=== PATIENT | male | born 1950 | race African-American/Black ===

== ENCOUNTER 2020-02-13 17:57 | Inpatient (IN) | payer MEDICARE, MEDICAID ==
[~2020-02-13] VITALS: Ht 172.7 cm; Wt 90.3 kg
[2020-02-13] MEDS ORDERED: ONDANSETRON HCL 4MG/2ML INJ IV STA (18:11)
[2020-02-13] MEDS ORDERED: SODIUM CHLORIDE 0.9% 500 ML IV ONE ×2 (18:15→23:00)
[2020-02-13 19:20] LABS: HEMATOCRIT. 35.8 % (42.0-52.0); HEMOGLOBIN. 13.2 g/dL (14.0-18.0); MEAN CORPUSCULAR HEMOGLOBIN 34.5 pg (28.0-32.0); MEAN CORPUSCULAR VOLUME 93.5 fL (80.0-94.0); MEAN PLATELET VOLUME 8.7 fl (7.4-10.4); PLATELET 279 x1000/uL (130-400); RED BLOOD CELL COUNT 3.83 mill/uL (4.7-6.1)
[2020-02-13 19:25] LABS: CHLORIDE 74 mEq/L (98-107)
[2020-02-13 19:30] LABS: ETHANOL BLOOD < 10 mg/dL
[2020-02-13] MEDS ORDERED: ASPIRIN 325MG TABLET PO ONE (20:15)
[2020-02-13 20:52] LABS: PLATELET ESTIMATE NORMAL
[2020-02-13 23:02] LABS: CLARITY URINE CLEAR (CLEAR); COLOR URINE YELLOW (YELLOW); KETONES URINE TRACE (NEGATIVE); LEUKOCYTE ESTERASE URINE NEGATIVE (NEGATIVE); NITRITE URINE NEGATIVE (NEGATIVE); OCCULT BLOOD URINE 2+ (NEGATIVE); PROTEIN URINE 2+ (NEGATIVE); SPECIFIC GRAVITY URINE 1.022 (1.005-1.030)
[2020-02-13 23:15] LABS: *AMPHETAMINES SCREEN URINE NEGATIVE (NEGATIVE); *BARBITURATES SCREEN URINE NEGATIVE (NEGATIVE); *BENZODIAZEPINES SCREEN URINE NEGATIVE (NEGATIVE); *COCAINE SCREEN URINE NEGATIVE (NEGATIVE); METHADONE URINE SCREEN NEGATIVE (NEGATIVE); OPIATES URINE SCREEN NEGATIVE (NEGATIVE); PHENCYCLIDINE URINE SCREEN NEGATIVE (NEGATIVE)
[2020-02-13 23:16] LABS: CANNABINOID URINE SCREEN NEGATIVE (NEGATIVE)
[2020-02-13] MEDS ORDERED: LORAZEPAM 2MG/ML CPJ IV NR (23:45)
[2020-02-13] MEDS ORDERED: MORPHINE SULFATE 2 MG/ML CPJ (NOT FOR IM USE) IV NR (23:45)
[2020-02-14] VITALS (18 sets, daily range): BP systolic 126–237; BP diastolic 46–143
[2020-02-14] MEDS ORDERED: CLONIDINE 0.1MG TABLET PO PRN (01:15)
[2020-02-14] MEDS ORDERED: SODIUM CHLORIDE 0.9% 1,000 ML IV SCH (01:15)
[2020-02-14] MEDS: HYDRALAZINE 20MG/ML VIAL IV SCH ×2 (01:59→06:00)
[2020-02-14] MEDS: KCL 20MEQ/100ML PREMIX 100 ML IV SCH ×2 (03:41→06:42)
[2020-02-14 07:33] LABS: CHLORIDE 77 mEq/L (98-107)
[2020-02-14] MEDS: MORPHINE SULFATE 2 MG/ML CPJ (NOT FOR IM USE) IV PRN ×2 (08:02→16:53)
[2020-02-14] MEDS: AMLODIPINE 10MG TABLET PO SCH (08:03)
[2020-02-14 08:04] LABS: HEMATOCRIT. 34.3 % (42.0-52.0); HEMOGLOBIN. 12.4 g/dL (14.0-18.0); MEAN CORPUSCULAR HEMOGLOBIN 34.2 pg (28.0-32.0); MEAN CORPUSCULAR VOLUME 94.3 fL (80.0-94.0); MEAN PLATELET VOLUME 8.6 fl (7.4-10.4); PLATELET 285 x1000/uL (130-400); RED BLOOD CELL COUNT 3.64 mill/uL (4.7-6.1)
[2020-02-14] MEDS: METOPROLOL TARTRATE 50MG TABLET PO SCH ×2 (08:08→20:52)
[2020-02-14] MEDS ORDERED: BENAZEPRIL 10MG TABLET PO SCH (09:00)
[2020-02-14] MEDS: IPRATROPIUM/ALBUTEROL 0.5-3(2.5)MG/3ML NEB HHN SCH ×2 (09:20→13:00)
[2020-02-14] MEDS: LORAZEPAM 2MG/ML CPJ IV PRN ×2 (12:20→20:51)
[2020-02-14] MEDS ORDERED: SODIUM CHLORIDE 3% 150 ML IV NR (12:30)
[2020-02-14 13:40] LABS: PLATELET ESTIMATE NORMAL
[2020-02-14] MEDS: HYDRALAZINE HCL 100MG TABLET PO SCH ×2 (13:41→20:51)
[2020-02-14 20:15] LABS: HEPATITIS B SURFACE ANTIGEN NEGATIVE
[2020-02-14 20:44] LABS: HEPATITIS A AB IGM NEGATIVE (NEGATIVE)
[2020-02-15] VITALS (12 sets, daily range): BP systolic 114–163; BP diastolic 56–74
[2020-02-15] MEDS: HYDRALAZINE HCL 100MG TABLET PO SCH ×3 (06:15→21:35)
[2020-02-15 06:45] LABS: CHLORIDE 81 mEq/L (98-107)
[2020-02-15 07:44] LABS: HEMATOCRIT. 35.9 % (42.0-52.0); HEMOGLOBIN. 12.8 g/dL (14.0-18.0); MEAN CORPUSCULAR HEMOGLOBIN 34.5 pg (28.0-32.0); MEAN CORPUSCULAR VOLUME 96.9 fL (80.0-94.0); MEAN PLATELET VOLUME 9.2 fl (7.4-10.4); PLATELET 257 x1000/uL (130-400); RED BLOOD CELL COUNT 3.71 mill/uL (4.7-6.1); RED CELL DISTRIBUTION WIDTH 16.5 % (11.6-14.6)
[2020-02-15] MEDS ORDERED: SODIUM CHLORIDE 3% 500ML IV SOLN IV ONE (08:15)
[2020-02-15] MEDS ORDERED: SODIUM CHLORIDE 3% 200 ML IV SCH (09:00)
[2020-02-15] MEDS: BENAZEPRIL 10MG TABLET PO SCH (09:15)
[2020-02-15] MEDS: METOPROLOL TARTRATE 100MG TABLET PO SCH ×2 (09:16→21:35)
[2020-02-15] MEDS: LORAZEPAM 2MG/ML CPJ IV PRN (09:16)
[2020-02-15] MEDS: AMLODIPINE 10MG TABLET PO SCH (09:16)
[2020-02-15 10:37] LABS: PLATELET ESTIMATE NORMAL
[2020-02-15] MEDS ORDERED: SODIUM CHLORIDE 3% 150 ML IV NR (23:00)
[2020-02-16] VITALS (12 sets, daily range): BP systolic 131–195; BP diastolic 30–89
[2020-02-16] MEDS: DEXT 5%/0.9% NACL 1,000 ML IV SCH (02:58)
[2020-02-16] MEDS: HYDRALAZINE HCL 100MG TABLET PO SCH ×2 (06:34→14:24)
[2020-02-16 06:52] LABS: HEMATOCRIT. 37.4 % (42.0-52.0); HEMOGLOBIN. 13.1 g/dL (14.0-18.0); MEAN CORPUSCULAR HEMOGLOBIN 33.9 pg (28.0-32.0); MEAN CORPUSCULAR VOLUME 96.4 fL (80.0-94.0); MEAN PLATELET VOLUME 8.5 fl (7.4-10.4); PLATELET 273 x1000/uL (130-400); RED BLOOD CELL COUNT 3.87 mill/uL (4.7-6.1); RED CELL DISTRIBUTION WIDTH 16.1 % (11.6-14.6)
[2020-02-16 07:02] LABS: CHLORIDE 86 mEq/L (98-107)
[2020-02-16] MEDS: AMLODIPINE 10MG TABLET PO SCH (10:41)
[2020-02-16] MEDS: BENAZEPRIL 10MG TABLET PO SCH (10:41)
[2020-02-16] MEDS: METOPROLOL TARTRATE 100MG TABLET PO SCH (10:42)
[2020-02-16 12:22] LABS: PLATELET ESTIMATE NORMAL
[2020-02-16] MEDS ORDERED: CLONIDINE 0.1MG TABLET PO SCH (14:00)
[2020-02-16] MEDS: HYDRALAZINE 20MG/ML VIAL IV SCH (17:11)
[2020-02-16] MEDS: HYDROCODONE/ACETAMINOPHEN 5/325MG TABLET PO PRN (22:24)
[2020-02-17] VITALS (12 sets, daily range): BP systolic 134–186; BP diastolic 56–101
[2020-02-17] MEDS: HYDRALAZINE 20MG/ML VIAL IV SCH ×2 (00:32→05:51)
[2020-02-17] MEDS: DEXT 5%/0.9% NACL 1,000 ML IV SCH ×2 (00:33→22:07)
[2020-02-17] MEDS: AMLODIPINE 10MG TABLET PO SCH (09:13)
[2020-02-17] MEDS: BENAZEPRIL 10MG TABLET PO SCH (09:14)
[2020-02-17] MEDS: HYDROCODONE/ACETAMINOPHEN 5/325MG TABLET PO PRN ×2 (09:20→23:56)
[2020-02-17 09:40] LABS: CHLORIDE 86 mEq/L (98-107)
[2020-02-17] MEDS ORDERED: POTASSIUM CHLORIDE 20MEQ/PACKET PO NR (10:15)
[2020-02-17] MEDS: CLONIDINE 0.1MG TABLET PO SCH ×2 (14:32→20:58)
[2020-02-17] MEDS ORDERED: BISACODYL 10MG SUPP PR PRN (17:15)
[2020-02-17] MEDS ORDERED: ACETAMINOPHEN 650MG SUPP PR PRN (17:15)
[2020-02-17] MEDS ORDERED: ACETAMINOPHEN 325MG TABLET PO PRN (17:15)
[2020-02-17] MEDS ORDERED: ONDANSETRON HCL 4MG/2ML INJ IV PRN (17:15)
[2020-02-17] MEDS ORDERED: HYDRALAZINE 20MG/ML VIAL IV PRN (17:15)
[2020-02-17 17:29] LABS: BG BASE EXCESS 4.2 mmol/L (-2.0-2.0); BG CARBOXYHEMOGLOBIN 0.2 % (0.5-1.5); BG DEOXYHEMOGLOBIN 12.2 % (0.0-5.0); BG FRACTION INSPIRED OXYGEN 21; BG HCO3 ACT 30.2 mmol/L (22.0-26.0); BG METHEMOGLOBIN 0.3 % (0.0-1.5); BG OXYGEN SATURATION 87.7 % (92.0-98.5); BG OXYHEMOGLOBIN 87.3 % (94.0-97.0); BG PCO2 51.1 mmHg (35.0-45.0); BG PO2 51.8 mmHg (75.0-100.0); BG SAMPLE SITE RIGHT RADIAL; BG VENT MODE ROOM AIR
[2020-02-17 18:36] LABS: PROTHROMBIN TIME 10.9 sec (9.6-11.0)
[2020-02-17 18:37] LABS: CREATINE KINASE MB FRACTION 6.1 ng/mL (0.5-3.6)
[2020-02-17] MEDS ORDERED: IOHEXOL-300 100 ML BOTTLE ONE (20:40)
[2020-02-17] MEDS: PIPERACILLIN/TAZOBACTAM 3.375 G in DEXT 5% WATER 100 ML IV SCH (20:56)
[2020-02-17] MEDS: METOPROLOL TARTRATE 100MG TABLET PO SCH (20:58)
[2020-02-17] MEDS: FAMOTIDINE 20MG TABLET PO SCH (21:01)
[2020-02-18] VITALS (13 sets, daily range): BP systolic 100–170; BP diastolic 45–95
[2020-02-18] MEDS: PIPERACILLIN/TAZOBACTAM 3.375 G in DEXT 5% WATER 100 ML IV SCH ×4 (00:47→18:30)
[2020-02-18] MEDS: IPRATROPIUM/ALBUTEROL 0.5-3(2.5)MG/3ML NEB HHN SCH ×4 (00:55→20:40)
[2020-02-18 06:23] LABS: HEMATOCRIT. 34.6 % (42.0-52.0); HEMOGLOBIN. 12.4 g/dL (14.0-18.0); MEAN CORPUSCULAR HEMOGLOBIN 35.1 pg (28.0-32.0); MEAN CORPUSCULAR VOLUME 97.5 fL (80.0-94.0); MEAN PLATELET VOLUME 8.7 fl (7.4-10.4); PLATELET 277 x1000/uL (130-400); RED BLOOD CELL COUNT 3.54 mill/uL (4.7-6.1); RED CELL DISTRIBUTION WIDTH 16.2 % (11.6-14.6)
[2020-02-18 06:37] LABS: CHLORIDE 88 mEq/L (98-107)
[2020-02-18] MEDS: CLONIDINE 0.1MG TABLET PO SCH ×3 (07:08→21:52)
[2020-02-18] MEDS: BUDESONIDE 0.5MG/2ML NEB HHN SCH ×2 (08:35→20:41)
[2020-02-18] MEDS: AMLODIPINE 10MG TABLET PO SCH (10:06)
[2020-02-18] MEDS: BENAZEPRIL 10MG TABLET PO SCH (10:06)
[2020-02-18] MEDS: METOPROLOL TARTRATE 100MG TABLET PO SCH ×2 (10:07→21:53)
[2020-02-18 13:26] LABS: PLATELET ESTIMATE NORMAL
[2020-02-18] MEDS: FAMOTIDINE 20MG TABLET PO SCH (21:52)
[2020-02-18] MEDS: DEXT 5%/0.9% NACL 1,000 ML IV SCH (23:00)
[2020-02-19] MEDS: PIPERACILLIN/TAZOBACTAM 3.375 G in DEXT 5% WATER 100 ML IV SCH ×5 (00:32→23:03)
[2020-02-19] MEDS: IPRATROPIUM/ALBUTEROL 0.5-3(2.5)MG/3ML NEB HHN SCH ×4 (01:39→20:25)
[2020-02-19] MEDS: CLONIDINE 0.1MG TABLET PO SCH ×3 (05:26→20:34)
[2020-02-19 05:50] VITALS: BP 164/94
[2020-02-19 08:00] VITALS: BP 173/87
[2020-02-19] MEDS: AMLODIPINE 10MG TABLET PO SCH (09:06)
[2020-02-19] MEDS: METOPROLOL TARTRATE 100MG TABLET PO SCH ×2 (09:06→20:34)
[2020-02-19] MEDS: BENAZEPRIL 10MG TABLET PO SCH (09:07)
[2020-02-19 10:00] VITALS: BP 163/64
[2020-02-19] MEDS: SODIUM CHLORIDE 0.9% 1,000 ML IV SCH ×2 (15:24→23:03)
[2020-02-19 15:36] LABS: HEMATOCRIT 34.4 % (42.0-52.0); HEMOGLOBIN 12.3 g/dL (14.0-18.0); MEAN CORPUSCULAR HEMOGLOBIN 34.8 pg (28.0-32.0); PLATELET 270 x1000/uL (130-400); RED BLOOD CELL COUNT 3.54 mill/uL (4.7-6.1); RED CELL DISTRIBUTION WIDTH 16.1 % (11.6-14.6)
[2020-02-19 15:43] LABS: CHLORIDE 88 mEq/L (98-107)
[2020-02-19 20:00] VITALS: BP 192/84
[2020-02-19] MEDS: BUDESONIDE 0.5MG/2ML NEB HHN SCH (20:25)
[2020-02-19] MEDS: FAMOTIDINE 20MG TABLET PO SCH (20:31)
[2020-02-19 21:20] VITALS: BP 155/84
[2020-02-20] VITALS: BP 160/69
[2020-02-20] MEDS: IPRATROPIUM/ALBUTEROL 0.5-3(2.5)MG/3ML NEB HHN SCH ×2 (02:10→08:55)
[2020-02-20] MEDS: CLONIDINE 0.1MG TABLET PO SCH (05:13)
[2020-02-20] MEDS: PIPERACILLIN/TAZOBACTAM 3.375 G in DEXT 5% WATER 100 ML IV SCH ×2 (05:13→12:18)
[2020-02-20 06:24] LABS: HEMATOCRIT. 31.8 % (42.0-52.0); HEMOGLOBIN. 11.3 g/dL (14.0-18.0); MEAN CORPUSCULAR HEMOGLOBIN 34.7 pg (28.0-32.0); MEAN CORPUSCULAR VOLUME 98.2 fL (80.0-94.0); MEAN PLATELET VOLUME 8.2 fl (7.4-10.4); PLATELET 248 x1000/uL (130-400); RED BLOOD CELL COUNT 3.24 mill/uL (4.7-6.1); RED CELL DISTRIBUTION WIDTH 16.2 % (11.6-14.6)
[2020-02-20 06:32] LABS: CHLORIDE 86 mEq/L (98-107)
[2020-02-20 08:00] VITALS: BP 158/89
[2020-02-20] MEDS: BUDESONIDE 0.5MG/2ML NEB HHN SCH (08:55)
[2020-02-20] MEDS: AMLODIPINE 10MG TABLET PO SCH (09:02)
[2020-02-20] MEDS: METOPROLOL TARTRATE 100MG TABLET PO SCH (09:03)
[2020-02-20] MEDS: BENAZEPRIL 10MG TABLET PO SCH (09:04)
[2020-02-20 10:08] VITALS: BP 158/78
[2020-02-20] MEDS: SODIUM CHLORIDE 0.9% 1,000 ML IV SCH (10:30)
[2020-02-20 11:02] LABS: PLATELET ESTIMATE NORMAL
== END 2020-02-20 18:31 | disposition home or self-care (01) | DRG 193 ==
LOC: ER 17:57 → 5EST 23:00 → EDBEDREQTM 23:03 → EDBEDREQ 23:03 → ENRESERV 23:34
PROVIDERS: ADMIT Internal Medicine; ATTEND Internal Medicine
DX: J18.9 Pneumonia, unspecified organism (principal); G93.41 Metabolic encephalopathy; I21.4 Non-ST elevation (NSTEMI) myocardial infarction; E87.1 Hypo-osmolality and hyponatremia; J44.1 Chronic obstructive pulmonary disease with (acute) exacerbation; E72.20 Disorder of urea cycle metabolism, unspecified; C34.90 Malignant neoplasm of unspecified part of unspecified bronchus or lung; D64.9 Anemia, unspecified; E86.0 Dehydration; E87.6 Hypokalemia; E87.8 Other disorders of electrolyte and fluid balance, not elsewhere classified; I10 Essential (primary) hypertension; J44.9 Chronic obstructive pulmonary disease, unspecified; M19.90 Unspecified osteoarthritis, unspecified site; B19.20 Unspecified viral hepatitis C without hepatic coma; D72.810 Lymphocytopenia; Z85.118 Personal history of other malignant neoplasm of bronchus and lung; Z79.899 Other long term (current) drug therapy
CPT/HCPCS: 36415; 36600; 71045; 71260; 73562; 73610; 80048; 80053; 80305; 80320; 81003; 82140; 82375; 82533; 82550; 82553; 82805; 84145; 84295; 84443; 84484; 85025; 85027; 86705; 86709; 86803; 87340; 92610; 93005; 93306; 93971; 94640; 97116; 97162; 97166; 97530; 97535; 99291; J0360; J2060; J2270; J2405; J2543; J3480; J7030; J7040; J7042; J7060; J7626; Q9967; G0480

== ENCOUNTER 2020-02-29 15:16 | Emergency (ER) | payer MEDICARE, MEDICAID ==
[~2020-02-29] VITALS: Ht 172.7 cm; Wt 82.0 kg
[2020-02-29] MEDS ORDERED: ALBUTEROL (15:27)
[2020-02-29] MEDS ORDERED: SODIUM CHLORIDE 0.9% 500 ML IV ONE (16:00)
[2020-02-29] MEDS ORDERED: ACETAMINOPHEN 500MG TABLET PO ONE (16:00)
[2020-02-29 16:11] VITALS: BP 174/55
== END 2020-02-29 17:40 | disposition home or self-care (01) ==
LOC: ER 15:16
DX: R51 Headache (principal); J44.9 Chronic obstructive pulmonary disease, unspecified; I10 Essential (primary) hypertension
CPT/HCPCS: 71045; 93005; 99283; J7040